=== PATIENT | female | born 1990 | race Caucasian/White ===

== ENCOUNTER 2017-12-21 21:56 | Emergency (ER) | payer BC ==
--- NOTE | 2017-12-21 23:40 | EDM.PDOC ---
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 It started this evening. She passed a couple of small clots. She does not have any lower abdominal pain. No cramping. She otherwise feels well. There is no clear provoking factor. 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 No fever or recent illness. No additional unusual vaginal discharge.No pain. No nausea or vomiting. No cough or shortness of breath. No urinary symptoms. - Related Data Allergies Allergy/AdvReac Type Severity Reaction Status Date / Time No Known Allergies Allergy Verified 12/21/17 22:08 Home Meds: Home Meds Qajooabu80/Iron Fum/FA/Om3/Dha [ Plus-Dha Combo Pack] 1 tab PO DAILY 07/29 [History] Progesterone,Micronized [Progesterone] 100 mg BID 12/21/17 [History] Past Medical History - Past Surgical History HEENT Surgical History: Reports: Oral Surgery Female Surgical History: Reports: Other (See Below) Other Female Surgeries/Procedures: miscarriage Social & Family History - Tobacco Use Smoking Status *Q: Never Smoker - Caffeine Use Caffeine Use: Reports: None ED ROS GENERAL - Review of Systems Review Of Systems: See Below Constitutional: Denies: Fever HEENT: Reports: No Symptoms Respiratory: Denies: Shortness of Breath Cardiovascular: Reports: No Symptoms Endocrine: Reports: No Symptoms GI/Abdominal: Reports: No Symptoms. Denies: Abdominal Pain : Denies: Dysuria Musculoskeletal: Reports: No Symptoms Skin: Reports: No Symptoms Neurological: Reports: No Symptoms Psychiatric: Reports: No Symptoms Hematologic/Lymphatic: Reports: No Symptoms Immunologic: Reports: No Symptoms ED EXAM - Physical Exam Exam: See Below Exam Limited By: No Limitations General Appearance: Alert, WD/WN, No Apparent Distress Eye Exam: Bilateral Eye: Normal Inspection, PERRL Ears: Normal External Exam Nose: Normal Inspection Throat/Mouth: Normal Inspection, Normal Oropharynx, Normal Voice Head: Atraumatic, Normocephalic Neck: Normal Inspection Respiratory/Chest: No Respiratory Distress, Lungs Clear, Normal Breath Sounds, No Accessory Muscle Use Cardiovascular: Normal Peripheral Pulses, Regular Rate, Rhythm, No Edema, No Murmur GI/Abdominal Exam: Soft, Non-Tender, No Distention (Female) Exam: Normal External Exam, Vaginal Bleeding (mild, 1 small clot in the vault, no active bleeding, cervix closed). No: Products of Conception Back Exam: Normal Inspection Extremities: Normal Inspection Neurological: Alert, Oriented, Normal Cognition, No Motor/Sensory Deficits Psychiatric: Normal Affect, Normal Mood Skin Exam: Warm, Dry, Intact, Normal Color, No Rash Course - Vital Signs Last Recorded V/S: Last Vital Signs Temp 36.8 C 12/21/17 22:04 Pulse 81 12/21/17 22:04 Resp 20 12/21/17 22:04 BP 133/85 12/21/17 22:04 Pulse Ox 100 12/21/17 22:04 - Orders/Labs/Meds Orders: Active Orders 24 hr Category Date Time Status Pelvic Exam, Set Up [RC] ASDIRECTED Care 12/21/17 22:33 Active Labs: Laboratory Tests 12/21/17 Range/Units 22:45 HCG, Quant 58330.0 mIU/mL - Re-Assessments/Exams Free Text/Narrative Re-Assessment/Exam: 12/21/17 23:48 hCG is appropriate at 67,000. I did a bedside transabdominal ultrasound and was able to see an intrauterine gestation with positive cardiac activity, estimate around 150 bpm, positive movement. Patient did not have further active bleeding here. Will discharge and have her call Dr. Clemente's office Saturday. Discussed ED return precautions. Departure - Departure Time of Disposition: 23:39 Disposition: Home, Self-Care 01 Clinical Impression: Vaginal bleeding affecting early - Discharge Information Instructions: Vaginal Bleeding During , First Trimester, [id number] Referrals: Yuval Clemente MD [Primary Care Provider] - Forms: ED Department Discharge Additional Instructions: 1. Follow up with Dr. Clemente this week 2. Return to the ED if you have very heavy bleeding or severe pain or any other concerning symptoms - My Orders Last 24 Hours: My Active Orders 12/21/17 22:33 Pelvic Exam, Set Up [RC] ASDIRECTED - Assessment/Plan Last 24 Hours: My Active Orders 12/21/17 22:33 Pelvic Exam, Set Up [RC] ASDIRECTED
== END 2017-12-21 23:45 | disposition home or self-care (01) ==
LOC: JD.ED 21:56
DX: O20.9 Hemorrhage in early pregnancy, unspecified (principal); Z3A.10 10 weeks gestation of pregnancy
CPT/HCPCS: 36415; 84702; 99283; 99284

== ENCOUNTER 2020-12-21 20:07 | Emergency (ER) | payer BC, OTHER ==
[2020-12-21] MEDS ORDERED: Magnesium Citrate Solution 296 ML Bottle PO ONE (20:31)
[2020-12-21] MEDS ORDERED: Ondansetron 4 MG Tab.DIS PO ONE (20:31)
--- NOTE | 2020-12-21 20:53 | EDM.PDOC ---
ED HPI GENERAL MEDICAL PROBLEM - General Chief Complaint: Abdominal Pain Stated Complaint: 12 WKS PG CONSTIPATED FEVER VOMITING Time Seen by Provider: 12/21/20 20:33 Source of Information: Reports: Patient, RN Notes Reviewed History Limitations: Reports: No Limitations - History of Present Illness INITIAL COMMENTS - FREE TEXT/NARRATIVE: Patient is a 30-year-old female who presents to the ER for the evaluation of her constipation. She is 12 weeks , she is a G3, with 1 spontaneous miscarriage. SWIMMING POOL ATTENDANT is Dr. Vernon. The patient notes that she has not had a good bowel movement, or normal bowel movement for herself in roughly 9 days. She has developed nausea and vomiting today, she has had 6 episodes of vomiting today. She also notes that she had a fever as high as 101.3 F at home. She is denying any dysuria, frequency or urgency, but thought maybe she had some brown or pink discharge along with some low pelvic pain, that seems to radiate into her back. She has had no chills, cough or shortness of breath. She has not been around anyone that is been known to be sick. Bilateral Lower Abdomen Pain Score (Numeric/FACES): 2 - Related Data Allergies Allergy/AdvReac Type Severity Reaction Status Date / Time No Known Allergies Allergy Verified 12/21/20 20:27 Home Meds: Home Meds Fish Oil/[place]-3 Fatty Acids [Fish Oil] 1 each PO DAILY 06/04/18 [History] No122/Iron/Folic Acid [ Multi Tablet] 1 each PO DAILY 06/04/18 [History] Docusate Sodium [Colace] 100 mg PO BID PRN cap 07/02/18 [Rx] polyethylene glycoL 3350 [MiraLAX] 17 gm PO DAILY 12/21/20 [History] Past Medical History SWIMMING POOL ATTENDANT History: Reports: , Spontaneous Immunologic History: Reports: Other (See Below) Dermatologic History: Reports: Other (See Below) - Infectious Disease History Infectious Disease History: Reports: None - Past Surgical History HEENT Surgical History: Reports: Oral Surgery Female Surgical History: Reports: Other (See Below) Other Female Surgeries/Procedures: miscarriage Social & Family History - Family History Family Medical History: No Pertinent Family History Cardiac: Reports: Other (See Below) Respiratory: Reports: Asthma : Reports: UTI, Recurrent Neurological: Reports: Other (See Below) Psychiatric: Reports: Depression Endocrine/Metabolic: Reports: Diabetes, Type I - Tobacco Use Tobacco Use Status *Q: Never Tobacco User Second Hand Smoke Exposure: No - Caffeine Use Caffeine Use: Reports: Coffee Caffeine Use Comment: occasionally - Recreational Drug Use Recreational Drug Use: No ED ROS GENERAL - Review of Systems Review Of Systems: Comprehensive ROS is negative, except as noted in HPI. ED EXAM, GI/ABD - Physical Exam Exam: See Below Exam Limited By: No Limitations General Appearance: Alert, WD/WN, No Apparent Distress, Anxious Respiratory/Chest: No Respiratory Distress, Lungs Clear, Normal Breath Sounds, No Accessory Muscle Use, Chest Non-Tender Cardiovascular: Normal Peripheral Pulses, Regular Rate, Rhythm, No Edema GI/Abdominal Exam: Normal Bowel Sounds, Soft, Non-Tender, No Distention, No Mass (Female) Exam: Deferred, Other (Dr. Mayberry did provide bedside US, the fetus was active and he counted heart rate at around 150bpm.) Extremities: Normal Inspection, Normal Capillary Refill Neurological: Alert, Oriented, Normal Cognition, No Motor/Sensory Deficits Psychiatric: Normal Affect, Normal Mood Skin Exam: Warm, Dry, Intact, Normal Color, No Rash Course - Vital Signs Last Recorded V/S: Last Vital Signs Temp 99.6 F 12/21/20 20:24 Pulse 103 H 12/21/20 20:24 Resp 18 12/21/20 20:24 BP 120/78 12/21/20 20:24 Pulse Ox 100 12/21/20 20:24 - Orders/Labs/Meds Orders: Active Orders 24 hr Category Date Time Status Enema [RC] ASDIRECTED Care 12/21/20 20:32 Ordered Labs: Laboratory Tests 12/21/20 12/21/20 Range/Units 20:51 20:55 WBC 21.69 H (3.98-10.04) K/mm3 RBC 4.10 (3.98-5.22) M/mm3 Hgb 12.8 (11.2-15.7) gm/dl Hct 37.8 (34.1-44.9) % MCV 92.2 (79.4-94.8) fl MCH 31.2 (25.6-32.2) pg MCHC 33.9 (32.2-35.5) g/dl RDW Std Deviation 41.6 (36.4-46.3) fL Plt Count 217 (182-369) K/mm3 MPV 9.9 (9.4-12.3) fl Neutrophils % (Manual) 87 H (40-60) % Band Neutrophils % 1 (0-10) % Lymphocytes % (Manual) 4 L (20-40) % Atypical Lymphs % 0 % Monocytes % (Manual) 7 (2-10) % Eosinophils % (Manual) 0 L (0.7-5.8) % Basophils % (Manual) 1 (0.1-1.2) Platelet Estimate Adequate RBC Morph Comment Normal Urine Color Yellow (Yellow) Urine Appearance Clear (Clear) Urine pH 6.0 (5.0-8.0) Ur Specific [place] > or = 1.030 (1.005-1.030) Urine Protein Negative (Negative) Urine Glucose (UA) Negative (Negative) Urine Ketones 2+ H (Negative) Urine Occult Blood Negative (Negative) Urine Nitrite Negative (Negative) Urine Bilirubin Negative (Negative) Urine Urobilinogen 1.0 (0.2-1.0) Ur Leukocyte Esterase Negative (Negative) Urine RBC 0-5 (0-5) /hpf Urine WBC 0-5 (0-5) /hpf Ur Squamous Epith Cells 0-5 (0-5) /hpf Urine Bacteria Few (FEW) /hpf Urine Mucus Moderate H (FEW) /hpf Meds: Medications Discontinued Medications Generic Name Dose Route Start Last Admin Trade Name Freq PRN Reason Stop Dose Admin Magnesium Citrate 296 ml 12/21/20 20:31 12/21/20 20:48 Magnesium Citrate Solution 296 Ml Bottle PO 12/21/20 20:32 296 ml ONETIME ONE Administration Ondansetron HCl 4 mg 12/21/20 20:31 12/21/20 20:48 Ondansetron 4 Mg Tab.Dis PO 12/21/20 20:32 4 mg ONETIME ONE Administration - Re-Assessments/Exams Free Text/Narrative Re-Assessment/Exam: 12/21/20 20:52 Patient presents to the ER for her constipation, we will give her some mag citrate, provide her with an enema, take a urine sample, and a basic CBC see if there is any sort of elevation of her white count due to the fever. Patient does not appear overly sick in the ER, and Dr. Mayberry did provide bedside ultrasound that demonstrated movement with a heart rate of roughly 150 bpm. This did reassure the mother, that the fetus is in fact okay. 12/21/20 21:44 Urinalysis has resulted, and demonstrates no focal abnormalities. The patient's white count is elevated at 21,000 with 85% neutrophils and 1 band reported on the manual differential. Again when the patient had ultrasound she elicited no pain response when pushing on the abdomen. I will talk the results over with the patient, and have her follow-up with her SWIMMING POOL ATTENDANT, tomorrow morning for at least a recheck, and to make sure that things are getting better, and have her return to the ER if things seem to be worsening. Departure - Departure Time of Disposition: 21:45 Disposition: Home, Self-Care 01 Condition: Good Clinical Impression: Constipation Qualifiers: Constipation type: other constipation type Qualified Code(s): K59.09 - Other constipation Fever Qualifiers: Fever type: unspecified Qualified Code(s): R50.9 - Fever, unspecified - Discharge Information *PRESCRIPTION DRUG MONITORING PROGRAM REVIEWED*: No *COPY OF PRESCRIPTION DRUG MONITORING REPORT IN PATIENT MEGAN: No Instructions: Constipation, Adult, [id number] Referrals: Fozia Vernon MD [Primary Care Provider] - Forms: ED Department Discharge Additional Instructions: You have been evaluated in the ED for nausea/vomiting/constipation. You have been given a bottle of magnesium citrate, please drink one half bottle, if you do not have a rather large bowel movement in the next few hours, continue with the last half bottle. Please note that you will have some mild abdomen cramping while using this medication, and you may have some looser stools towards the end of use of this medication. Your white blood cell count was slightly elevated at today's visit, but sometimes this can happen in . If symptoms seem to progress, or your abdomen pain seems to locate within the right lower abdomen, or you develop any worsening symptoms, please do not hesitate to return to the ER otherwise I would highly recommend you follow-up with your SWIMMING POOL ATTENDANT, tomorrow morning for close follow-up appointment either tomorrow or early the next morning on Saturday before the weekend. Just tell them that you were seen in the ER and need a follow-up appointment. Over the next 24-48 hours please try to limit diet to clear liquids and advance as tolerate to a bland diet to alleviate symptoms of nausea/vomiting. Recommend you use a stool softener like MiraLAX, Colace or Dulcolax in your normal regimen, to keep your stool soft, and to hopefully prevent further constipation. Please return to the ED if your symptoms should change or worsen. Sepsis Event Note (ED) - Evaluation Sepsis Screening Result: No Definite Risk - Focused Exam Vital Signs: Vital Signs Temp Pulse Resp BP Pulse Ox 12/21/20 20:24 99.6 F 103 H 18 120/78 100 - My Orders Last 24 Hours: My Active Orders 12/21/20 20:32 Enema [RC] ASDIRECTED - Assessment/Plan Last 24 Hours: My Active Orders 12/21/20 20:32 Enema [RC] ASDIRECTED
== END 2020-12-21 22:00 | disposition home or self-care (01) ==
LOC: JD.ED 20:07
DX: O99.611 Diseases of the digestive system complicating pregnancy, first trimester (principal); K59.09 Other constipation; O99.891 Other specified diseases and conditions complicating pregnancy; R50.9 Fever, unspecified; Z3A.12 12 weeks gestation of pregnancy
CPT/HCPCS: 36415; 81001; 85007; 85027; 99284; A9270

== ENCOUNTER 2020-12-23 14:35 | Emergency (ER) | payer OTHER ==
[2020-12-23] MEDS ORDERED: Sodium Chloride 0.9% 1,000 ML IV STA (16:37)
--- NOTE | 2020-12-23 16:39 | US ---
Right lower quadrant abdominal ultrasound: Multiple real-time images of the right lower abdomen were obtained. No cyst or solid abnormality is seen. Appendix is not visualized with certainty. Impression: 1. No ultrasound abnormality is appreciated within the right lower quadrant. 2. Nonvisualized appendix. Diagnostic code #1
--- NOTE | 2020-12-23 16:39 | US ---
Obstetrical ultrasound: Multiple real-time images were obtained transabdominally. Comparison: No previous study is available. Dates: Current ultrasound: [place] 06/29/21, gestational age 13 weeks 0 days Single intrauterine fetus is seen. Amniotic fluid volume is normal. Minimal subchorionic hemorrhage is noted. Maternal ovaries are not visualized. Measurements: [place]-rump length: 6.72 cm - 13 weeks 0 days Heart rate: 176 bpm Impression: 1. Single intrauterine gestation. Dates as noted above. 2. Minimal subchorionic hemorrhage is seen. 3. No other complicating abnormality is appreciated. Diagnostic code #2
[2020-12-23] MEDS ORDERED: HYDROmorphone 0.5 MG/0.5 ML Syringe IVPUSH ONE ×3 (17:01→18:52)
[2020-12-23] MEDS ORDERED: Ondansetron 4 MG/2 ML SDV IVPUSH ONE (17:01)
--- NOTE | 2020-12-23 17:23 | EDM.PDOC ---
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 She reports that last week, she had an occurrence of vaginal bleeding. She was seen by her OB/GY N, Dr. Vernon. Ultrasound was completed that time and showed that she did have a subchorionic hemorrhage. Bleeding had stopped until about 2 days ago she developed some light pink vaginal spotting. Bleeding has been occurring since that time and has been getting progressively heavier, however, thusfar she has only had to wear a panty liner. She also reports that for the last 2 days she has had fever with a T-max of 103, intermittent left lower quadrant abdominal pain as well as pelvic pain. She was seen in this emergency department 2 days ago for the symptoms as well as for vomiting. Blood work was completed at that time and showed a WBC of 21.99. Patient states that she had not had a bowel movement for 9 days prior to that. She received an enema and had proximately 3 bowel movements since that time. She has had no further vomiting. She was seen by her CUTTING AND SPLICING SUPERVISOR yesterday. She did a pelvic exam and stated that her cervix was closed. Blood work was not repeated. After leaving her CUTTING AND SPLICING SUPERVISOR's office, she spiked a fever again. She is concerned that she could possibly have appendicitis as her brother had this with only left-sided abdominal pain. She reports taking Tylenol this morning but has not had a documented fever today. Temperature during triage was 98.8. Approximately 2 weeks ago, she was tested for gonorrhea and chlamydia, and both of these were found to be negative. She was Covid tested in the clinic yesterday and this was negative. Treatments BARN AND PROPERTY MANAGER: Reports: Other (see below) Other Treatments BARN AND PROPERTY MANAGER: tylenol Lower Abdomen Pain Score (Numeric/FACES): 4 - Related Data Allergies Allergy/AdvReac Type Severity Reaction Status Date / Time No Known Allergies Allergy Verified 12/21/20 20:27 Home Meds: Home Meds Fish Oil/[place]-3 Fatty Acids [Fish Oil] 1 each PO DAILY 06/04/18 [History] No122/Iron/Folic Acid [ Multi Tablet] 1 each PO DAILY 06/04/18 [History] Docusate Sodium [Colace] 100 mg PO BID PRN cap 07/02/18 [Rx] polyethylene glycoL 3350 [MiraLAX] 17 gm PO DAILY 12/21/20 [History] Past Medical History CUTTING AND SPLICING SUPERVISOR History: Reports: , Spontaneous Immunologic History: Reports: Other (See Below) Dermatologic History: Reports: Other (See Below) - Infectious Disease History Infectious Disease History: Reports: None - Past Surgical History HEENT Surgical History: Reports: Oral Surgery Female Surgical History: Reports: Other (See Below) Other Female Surgeries/Procedures: miscarriage Social & Family History - Family History Family Medical History: No Pertinent Family History Cardiac: Reports: Other (See Below) Respiratory: Reports: Asthma : Reports: UTI, Recurrent Neurological: Reports: Other (See Below) Psychiatric: Reports: Depression Endocrine/Metabolic: Reports: Diabetes, Type I - Tobacco Use Tobacco Use Status *Q: Never Tobacco User - Caffeine Use Caffeine Use: Reports: Coffee Caffeine Use Comment: occasionally - Recreational Drug Use Recreational Drug Use: No ED ROS GENERAL - Review of Systems Review Of Systems: See Below Constitutional: Reports: Fever, Chills HEENT: Reports: No Symptoms Respiratory: Reports: No Symptoms. Denies: Shortness of Breath, Cough Cardiovascular: Reports: No Symptoms. Denies: Chest Pain Endocrine: Reports: No Symptoms GI/Abdominal: Reports: Abdominal Pain, Nausea. Denies: Vomiting : Reports: Other (vaginal bleeding) Musculoskeletal: Reports: No Symptoms Skin: Reports: No Symptoms Neurological: Reports: No Symptoms Psychiatric: Reports: No Symptoms Hematologic/Lymphatic: Reports: No Symptoms Immunologic: Reports: No Symptoms ED EXAM, GI/ABD - Physical Exam Exam: See Below Exam Limited By: No Limitations General Appearance: Alert, WD/WN, No Apparent Distress Respiratory/Chest: No Respiratory Distress, Lungs Clear, Normal Breath Sounds, No Accessory Muscle Use, Chest Non-Tender Cardiovascular: Normal Peripheral Pulses, Regular Rate, Rhythm, No Edema, No Gallop, No JVD, No Murmur, No Rub GI/Abdominal Exam: Normal Bowel Sounds, Soft, No Organomegaly, No Distention, No Abnormal Bruit, No Mass, Pelvis Stable, Tender (LLQ and suprapubic) Neurological: Alert, Oriented, CN II-XII Intact, Normal Cognition, Normal Gait, Normal Reflexes, No Motor/Sensory Deficits Psychiatric: Normal Affect, Normal Mood Skin Exam: Warm, Dry, Intact, Normal Color, No Rash Course - Vital Signs Last Recorded V/S: Last Vital Signs Temp 98.8 F 12/23/20 14:52 Pulse 92 12/23/20 18:21 Resp 16 12/23/20 18:21 BP 110/62 12/23/20 18:21 Pulse Ox 100 12/23/20 18:21 - Orders/Labs/Meds Labs: Laboratory Tests 12/23/20 12/23/20 12/23/20 Range/Units 15:34 15:40 15:40 WBC 10.99 H (3.98-10.04) K/mm3 RBC 3.64 L (3.98-5.22) M/mm3 Hgb 11.4 (11.2-15.7) gm/dl Hct 33.4 L (34.1-44.9) % MCV 91.8 (79.4-94.8) fl MCH 31.3 (25.6-32.2) pg MCHC 34.1 (32.2-35.5) g/dl RDW Std Deviation 41.4 (36.4-46.3) fL Plt Count 132 L D (182-369) K/mm3 MPV 10.1 (9.4-12.3) fl Neut % (Auto) 76.6 H (34.0-71.1) % Lymph % (Auto) 13.3 L (19.3-51.7) % Lane % (Auto) 9.0 (4.7-12.5) % Eos % (Auto) 0.5 L (0.7-5.8) Baso % (Auto) 0.2 (0.1-1.2) % Neut # (Auto) 8.43 H (1.56-6.13) K/mm3 Lymph # (Auto) 1.46 (1.18-3.74) K/mm3 Lane # (Auto) 0.99 H (0.24-0.36) K/mm3 Eos # (Auto) 0.05 (0.04-0.36) K/mm3 Baso # (Auto) 0.02 (0.01-0.08) K/mm3 Manual Slide Review Abnormal smear Sodium 138 (136-145) mEq/L Potassium 3.3 L (3.5-5.1) mEq/L Chloride 104 (98-107) mEq/L Carbon Dioxide 25 (21-32) mEq/L Anion Gap 12.3 (5-15) BUN 6 L (7-18) mg/dL Creatinine 0.6 (0.55-1.02) mg/dL Est Cr Clr Drug Dosing 137.63 mL/min Estimated GFR (MDRD) > 60 (>60) mL/min BUN/Creatinine Ratio 10.0 L (14-18) Glucose 91 (70-99) mg/dL Calcium 8.4 L (8.5-10.1) mg/dL Total Bilirubin 0.5 (0.2-1.0) mg/dL AST 18 (15-37) U/L ALT 21 (14-59) U/L Alkaline Phosphatase 66 (46-116) U/L C-Reactive Protein 31.4 H* (<1.0) mg/dL Total Protein 6.7 (6.4-8.2) g/dl Albumin 2.8 L (3.4-5.0) g/dl Globulin 3.9 gm/dL Albumin/Globulin Ratio 0.7 L (1-2) Lipase 61 L (73-393) U/L Urine Color Yellow (Yellow) Urine Appearance Clear (Clear) Urine pH 6.5 (5.0-8.0) Ur Specific [place] 1.020 (1.005-1.030) Urine Protein Trace H (Negative) Urine Glucose (UA) Negative (Negative) Urine Ketones Negative (Negative) Urine Occult Blood 2+ H (Negative) Urine Nitrite Negative (Negative) Urine Bilirubin Negative (Negative) Urine Urobilinogen 1.0 (0.2-1.0) Ur Leukocyte Esterase Negative (Negative) Urine RBC 5-10 H (0-5) /hpf Urine WBC 0-5 (0-5) /hpf Ur Squamous Epith Cells 0-5 (0-5) /hpf Urine Bacteria Few (FEW) /hpf Urine Mucus Few (FEW) /hpf Blood Type 12/23/20 Range/Units 15:40 WBC (3.98-10.04) K/mm3 RBC (3.98-5.22) M/mm3 Hgb (11.2-15.7) gm/dl Hct (34.1-44.9) % MCV (79.4-94.8) fl MCH (25.6-32.2) pg MCHC (32.2-35.5) g/dl RDW Std Deviation (36.4-46.3) fL Plt Count (182-369) K/mm3 MPV (9.4-12.3) fl Neut % (Auto) (34.0-71.1) % Lymph % (Auto) (19.3-51.7) % Lane % (Auto) (4.7-12.5) % Eos % (Auto) (0.7-5.8) Baso % (Auto) (0.1-1.2) % Neut # (Auto) (1.56-6.13) K/mm3 Lymph # (Auto) (1.18-3.74) K/mm3 Lane # (Auto) (0.24-0.36) K/mm3 Eos # (Auto) (0.04-0.36) K/mm3 Baso # (Auto) (0.01-0.08) K/mm3 Manual Slide Review Sodium (136-145) mEq/L Potassium (3.5-5.1) mEq/L Chloride (98-107) mEq/L Carbon Dioxide (21-32) mEq/L Anion Gap (5-15) BUN (7-18) mg/dL Creatinine (0.55-1.02) mg/dL Est Cr Clr Drug Dosing mL/min Estimated GFR (MDRD) (>60) mL/min BUN/Creatinine Ratio (14-18) Glucose (70-99) mg/dL Calcium (8.5-10.1) mg/dL Total Bilirubin (0.2-1.0) mg/dL AST (15-37) U/L ALT (14-59) U/L Alkaline Phosphatase (46-116) U/L C-Reactive Protein (<1.0) mg/dL Total Protein (6.4-8.2) g/dl Albumin (3.4-5.0) g/dl Globulin gm/dL Albumin/Globulin Ratio (1-2) Lipase (73-393) U/L Urine Color (Yellow) Urine Appearance (Clear) Urine pH (5.0-8.0) Ur Specific [place] (1.005-1.030) Urine Protein (Negative) Urine Glucose (UA) (Negative) Urine Ketones (Negative) Urine Occult Blood (Negative) Urine Nitrite (Negative) Urine Bilirubin (Negative) Urine Urobilinogen (0.2-1.0) Ur Leukocyte Esterase (Negative) Urine RBC (0-5) /hpf Urine WBC (0-5) /hpf Ur Squamous Epith Cells (0-5) /hpf Urine Bacteria (FEW) /hpf Urine Mucus (FEW) /hpf Blood Type A POSITIVE Meds: Medications Discontinued Medications Generic Name Dose Route Start Last Admin Trade Name Freq PRN Reason Stop Dose Admin Diatrizoate Meglum/Diatrizoate Sod 120 ml 12/23/20 18:30 12/23/20 18:36 Diatrizoate Meglumine/Diatrizoate Sodium 37% 120 Ml Bottle PO 12/23/20 18:31 80 ml ONETIME ONE Administration Hydromorphone HCl 0.5 mg 12/23/20 17:01 12/23/20 17:07 Hydromorphone 0.5 Mg/0.5 Ml Syringe IVPUSH 12/23/20 17:02 0.5 mg ONETIME ONE Administration Hydromorphone HCl 0.5 mg 12/23/20 18:08 12/23/20 18:19 Hydromorphone 0.5 Mg/0.5 Ml Syringe IVPUSH 12/23/20 18:09 0.5 mg ONETIME ONE Administration Hydromorphone HCl 0.5 mg 12/23/20 18:52 12/23/20 19:06 Hydromorphone 0.5 Mg/0.5 Ml Syringe IVPUSH 12/23/20 18:53 0.5 mg ONETIME ONE Administration Hydromorphone HCl Confirm 12/23/20 18:18 12/23/20 21:33 Hydromorphone 0.5 Mg/0.5 Ml Syringe Administered 12/23/20 18:19 Not Given Dose 0.5 mg .ROUTE .STK-MED ONE Hydromorphone HCl Confirm 12/23/20 19:03 12/23/20 21:33 Hydromorphone 0.5 Mg/0.5 Ml Syringe Administered 12/23/20 19:04 Not Given Dose 0.5 mg .ROUTE .STK-MED ONE Sodium Chloride 1,000 mls @ 999 mls/hr 12/23/20 16:37 12/23/20 16:50 Normal Saline IV 12/23/20 17:37 150 mls/hr NOW STA Administration Iopamidol 100 ml 12/23/20 18:30 12/23/20 18:36 Iopamidol 612 Mg/Ml 100 Ml Bottle IVPUSH 12/23/20 18:31 100 ml ONETIME ONE Administration Misoprostol 600 mcg 12/23/20 21:16 12/23/20 21:33 Misoprostol 200 Mcg Tab PO 12/23/20 21:17 600 mcg ONETIME ONE Administration Ondansetron HCl 4 mg 12/23/20 17:01 12/23/20 17:07 Ondansetron 4 Mg/2 Ml Sdv IVPUSH 12/23/20 17:02 4 mg ONETIME ONE Administration Sodium Chloride 10 ml 12/23/20 18:30 12/23/20 18:37 Sodium Chloride 0.9% 10 Ml Syringe FLUSH 10 ml ASDIRECTED CRYSTAL Administration - Re-Assessments/Exams Free Text/Narrative Re-Assessment/Exam: Patient is a 30-year-old female, A1 12 weeks gestation, returning to the emergency department for ongoing light vaginal bleeding, lower abdominal and low left lower quadrant abdominal pain, as well as fevers. She was seen in this emergency department 2 days ago and found to have a white count of 21.99. She saw her CUTTING AND SPLICING SUPERVISOR yesterday who told her that if she continues to have fever she should return to the ER as this could be a sign of appendicitis. On exam, she does have some mild left lower quadrant as well as more significant mid to lower abdominal tenderness. She was found to be afebrile on triage. I have ordered blood work, urinalysis, as well as an OB and right lower quadrant ultrasound. 12/23/20 17:25 Hematology was significant for a WBC minimally elevated at 10.99, potassium 3.3, CRP 31.4. Urinalysis is negative for infection. Right lower quadrant abdominal ultrasound shows no abnormalities and a nonvisualized appendix. OB ultrasound impression as follows: 1. Single intrauterine gestation. Dates as noted above 2. Minimal subchorionic hemorrhage is seen. 3. No other complicating abnormalities is appreciated. Case was discussed with the general surgeon on-call, Dr. Vargas. Given the patient's symptoms of abdominal pain and fever and her significantly elevated CRP, she recommends that we proceed to CT scan to ensure there is no acute intra-abdominal process occurring as the risk of an untreated intraabdominal infection exceeds the risk of radiation to an unborn fetus. Discussed the risks of radiation associated with the CT scan versus the risk of an untreated intraabdominal infection with the patient and she has agreed to proceed with CT scan. She also states that her low abdominal pain has worsened since she got here. I ordered Dilaudid 0.5 mg IV, Zofran 4 mg IV, and NS at 150 mill per hour. 12/23/20 18:25 Concern was raised by radiologist with regards to CT scan given that the patient is . Radiologist Berta mckinnon, did speak with Dr. Vargas who reiterated that CT scan is the only option as we do not have MRI services available here. I did speak with the patient and her mother in law again and offer possibility of trying to transfer to [place] for MRI if she is concerned with the radiation risk. I also spoke with her on the phone and discussed the risks of radiation. They have decided to proceed with the CT scan. Patient is having increased pain. I did order an additional dose of Dilaudid 0.5 mg IV. 12/23/20 18:53 Patient reports that her vaginal bleeding has increased significantly. She is also passing some small clots. For an additional dose of Dilaudid 0.[address] scan results are pending. Patient will be moved to the gynecologic room for a pelvic exam. 12/23/20 19:59 CT scan of the abdomen pelvis impression as follows: 1. Gravid uterus with an open cervical os with fluid and hyperdense material passing through the cervical os and into the vaginal canal. Findings are highly concerning for cervical incompetence/ failure. Correlation with ultrasound is recommended. 2. No other acute abdominopelvic pathology is otherwise appreciated. 3. Incidental findings as detailed above. Pelvic exam was completed and does show a gestational sac within the vaginal canal. Case was discussed with CUTTING AND SPLICING SUPERVISOR on-call, Dr. Billy. He verbalized that we should allow the patient to pass the products naturally. Once products pass if she continues to have bleeding, she can be given Methergine 0.2 mg IM or Cytotec 400 to 600 mg p.o. 12/23/20 21:30 Patient has had no further cramping and has not passed the products of conception. Spoke with Dr. Billy. He recommend that we give Cytotec 600 mg p.o. to stimulate uterine contractions. Discussed this plan with the patient she was in agreement. She will notify me if her pain should worsen at that time we will give her additional pain medications as needed. 12/23/20 23:00 Patient has had no additional cramping. I did have her put on a brief and get up and walk around the room. Shortly thereafter she did pass the fetus with a still intact gestational sac and complete placenta. Patient did request to see the remains. remains will be sent to laboratory. We will monitor for additional bleeding, however at this time she is having very little vaginal bleeding. 12/23/20 23:17 Patient is having no vaginal bleeding or pain at this time. We will discharge her home with a prescription for Geronimo should the cramping return. Recommend routine ibuprofen for the next couple days. Discussed return precautions including increased vaginal bleeding. Recommend follow-up with her CUTTING AND SPLICING SUPERVISOR on Saturday. Departure - Departure Time of Disposition: 23:18 Disposition: Home, Self-Care 01 Condition: Good Clinical Impression: Complete - Discharge Information *PRESCRIPTION DRUG MONITORING PROGRAM REVIEWED*: No *COPY OF PRESCRIPTION DRUG MONITORING REPORT IN PATIENT MEGAN: No Instructions: Miscarriage, [id number] Referrals: Fozia Vernon MD [Primary Care Provider] - Forms: ED Department Discharge Additional Instructions: You were seen in the emergency department today for pelvic and left lower abdominal pain, fevers, and vaginal bleeding. Work-up included blood work, urinalysis, ultrasound, and a CT scan of your abdomen pelvis. Unfortunately, the results your work-up indicated that you were having a miscarriage. You did complete miscarriage in the emergency department. As we discussed, you may continue to have some pelvic cramping as well as bleeding. Recommend ibuprofen routinely for the next few days. For pain not relieved by this, you have been provided a prescription for hydrocodone with Tylenol. Use this as prescribed. If your bleeding should increase to where you are saturating a pad an hour from 2 or more hours, recommend return to the emergency department for reevaluation. Please contact your CUTTING AND SPLICING SUPERVISOR on Saturday morning to update her on this evening's occurrences. Our deepest condolences to your and your family for your loss. Sepsis Event Note (ED) - Evaluation Sepsis Screening Result: No Definite Risk
[2020-12-23] MEDS ORDERED: HYDROmorphone 0.5 MG/0.5 ML Syringe ONE ×2 (18:18→19:03)
[2020-12-23] MEDS ORDERED: Diatrizoate Meglumine/Diatrizoate Sodium 37% 120 ML Bottle PO ONE (18:30)
[2020-12-23] MEDS ORDERED: Sodium Chloride 0.9% 10 ML Syringe FLUSH SCH (18:30)
[2020-12-23] MEDS ORDERED: Iopamidol 612 MG/ML 100 ML Bottle IVPUSH ONE (18:30)
[2020-12-23] MEDS ORDERED: Misoprostol 200 MCG Tab PO ONE (21:16)
--- NOTE | 2020-12-24 07:58 | CT ---
CT abdomen and pelvis Technique: Multiple axial sections were obtained from above the dome of the diaphragm inferiorly through the pubic symphysis. Intravenous and oral contrast was utilized. Reconstructed coronal and sagittal images were also obtained. Comparison: Prior right lower quadrant ultrasound performed earlier on the same day as well as prior obstetrical ultrasound also performed on the same day. Findings: Visualized lung bases are clear. Liver shows no focal parenchymal abnormality. Spleen appears normal. Adrenal glands show no nodule. Pancreas appears within normal limits. Gallbladder contains no calcified gallstones. Kidneys show symmetric contrast enhancement without hydronephrosis or mass. Small nonobstructing calculus is noted within each kidney measuring less than 3 mm. Abdominal aorta shows no aneurysm. No retroperitoneal adenopathy is seen. No mesenteric abnormalities are seen. Intrauterine is seen. Appendix is visualized and is normal in size. No inflammatory change is appreciated. On the reconstructed sagittal images there appears to be protrusion of the amniotic sac into the cervix suggesting incompetent cervix Impression: 1. Intrauterine . 2. Appendix is seen and is normal. 3. Small nonobstructing calculus within each kidney. 4. Amniotic fluid within the cervical canal suggesting incompetent cervix. This finding is not definitely appreciated on earlier ultrasound study. Diagnostic code #5 I agree with preliminary report from [facility] finalized on 12/23/20, 8:15 PM CDT, code 1
== END 2020-12-23 23:47 | disposition home or self-care (01) ==
LOC: JD.ED 14:35
DX: O03.9 Complete or unspecified spontaneous abortion without complication (principal)
CPT/HCPCS: 36415; 74177; 76705; 76801; 80053; 81001; 83690; 85025; 86140; 86900; 86901; 96374; 96375; 96376; 99284; A9270; J1170; J2405; J7030; Q9963; Q9967

== ENCOUNTER 2021-10-07 17:22 | Inpatient (IN) | payer OTHER ==
[2021-10-07] MEDS ORDERED: Nalbuphine 10 MG/1 ML Vial IVPUSH PRN (22:54)
[2021-10-07] MEDS ORDERED: Lactated Ringers 1,000 ML IV SCH (22:54)
[2021-10-07] MEDS ORDERED: Sodium Chloride 0.9% 10 ML Syringe FLUSH PRN (22:54)
[2021-10-07] MEDS ORDERED: Oxytocin/Lactated Ringers 10 UNIT/1,000 ML BAG IV SCH (22:54)
[2021-10-07] MEDS ORDERED: Acetaminophen 325 MG Tab PO PRN (22:54)
[2021-10-08] MEDS ORDERED: Lidocaine 1% 50 ML MDV ONE (00:33)
[2021-10-08] MEDS: Ibuprofen 600 MG Tab PO PRN ×4 (01:00→21:15)
[2021-10-08] MEDS ORDERED: Acetaminophen 325 MG Tab PO PRN (02:21)
[2021-10-08] MEDS ORDERED: Witch Hazel Medicated Pads 40/Jar TOP PRN (02:21)
[2021-10-08] MEDS ORDERED: Hydrocortisone Acetate 25 MG Supp RECTAL PRN (02:21)
[2021-10-08] MEDS ORDERED: Benzocaine/Menthol 20%-0.5% Spray 78 GM Cannister TOP PRN (02:21)
[2021-10-08] MEDS ORDERED: Magnesium Hydroxide 400 MG/5 ML Susp 30 ML Cup PO PRN (02:21)
[2021-10-08] MEDS ORDERED: Oxytocin/Lactated Ringers 10 UNIT/1,000 ML BAG IV SCH (02:30)
[2021-10-08] MEDS ORDERED: Measles, Mumps & Rubella Vaccine 0.5 ML SDV SUBCUT ONE (02:31)
[2021-10-08] MEDS ORDERED: Sodium Chloride 0.9% 10 ML Syringe FLUSH SCH (09:00)
[2021-10-08] MEDS: Prenatal Multivitamin with Calcium/Folic Acid/Iron Tab PO SCH (15:47)
[2021-10-09] MEDS: Prenatal Multivitamin with Calcium/Folic Acid/Iron Tab PO SCH (09:16)
[2021-10-09] MEDS: Ibuprofen 600 MG Tab PO PRN ×2 (09:17→15:00)
[2021-10-09] MEDS: Docusate Sodium 100 MG Cap PO PRN (15:01)
[2021-10-10] MEDS: Docusate Sodium 100 MG Cap PO PRN (00:15)
[2021-10-10] MEDS: Ibuprofen 600 MG Tab PO PRN ×2 (00:16→09:38)
[2021-10-10] MEDS: Prenatal Multivitamin with Calcium/Folic Acid/Iron Tab PO SCH (09:38)
[2021-10-10] MEDS ORDERED: Measles, Mumps & Rubella Vaccine 0.5 ML SDV SUBCUT ONE (13:15)
== END 2021-10-10 13:50 | disposition home or self-care (01) | DRG 807 ==
LOC: JD.OBCHECK 17:22 → JD.OB 17:23 → OBSVTOIN 22:37 → JD.OBCHECK 22:37 → JD.OB 10-08 02:58
PROVIDERS: ADMIT Obstetrics & Gynecology; ATTEND Obstetrics & Gynecology
PROC: 10E0XZZ Delivery of Products of Conception, External Approach (ICD-10-PCS; principal; 2021-10-08)
PROC: 0KQM0ZZ Repair Perineum Muscle, Open Approach (ICD-10-PCS; 2021-10-08)
DX: O60.14X0 Preterm labor third trimester with preterm delivery third trimester, not applicable or unspecified (principal); Z37.0 Single live birth; Z3A.36 36 weeks gestation of pregnancy; Z86.16 Personal history of COVID-19; O70.1 Second degree perineal laceration during delivery
CPT/HCPCS: 36415; 59025; 59409; 84112; 85025; 86592; 90471; 90707; A9270-GY; J2001; J2590; J7120

== ENCOUNTER 2025-04-23 09:29 | Inpatient (IN) | payer BC ==
[2025-04-23] MEDS ORDERED: Sodium Chloride 0.9% 10 ML Syringe FLUSH PRN (10:09)
[2025-04-23] MEDS ORDERED: Nalbuphine 10 MG/1 ML Vial IVPUSH PRN (10:09)
[2025-04-23] MEDS ORDERED: Ondansetron 4 MG/2 ML SDV IVPUSH PRN (10:09)
[2025-04-23] MEDS ORDERED: Oxytocin/0.9 % Sodium Chloride 30 UNIT/500 ML BAG IV SCH (10:15)
[2025-04-23] MEDS: Lactated Ringers 1,000 ML IV SCH (10:18)
[2025-04-23 10:49] LABS: BASOPHILS ABSOLUTE AUTO 0.0 K/mm3 (0.0-0.2); BASOPHILS PERCENT AUTO 0.3 % (0.0-1.0); EOSINOPHILS ABSOLUTE AUTO 0.0 K/mm3 (0.0-0.4); EOSINOPHILS PERCENT AUTO 0.4 % (0.0-6.0); IMMATURE GRAN ABSOLUTE AUTO 0.06 K/mm3 (0.00-0.05); IMMATURE GRAN PERCENT AUTO 0.6 % (0.0-0.4); LYMPHOCYTES ABSOLUTE AUTO 2.1 K/mm3 (1.0-4.8); LYMPHOCYTES PERCENT AUTO 22.6 % (24.0-44.0); MEAN PLATELET VOLUME 10.4 fl (9.4-12.3); MONOCYTES ABSOLUTE AUTO 0.7 K/mm3 (0.0-0.8); MONOCYTES PERCENT AUTO 7.0 % (0.0-8.0); NEUTROPHILS ABSOLUTE AUTO 6.5 K/mm3 (1.8-7.7); NEUTROPHILS PERCENT AUTO 69.1 % (41.0-71.0); NRBC ABSOLUTE 0.00 (0.00-0.02); NRBC PERCENT 0.0 % (0.0-0.2); PLATELET COUNT,PLT 254 K/mm3 (150-400); RED BLOOD CELL COUNT 4.93 M/mm3 (4.10-5.30); WHITE BLOOD CELL COUNT,WBC 9.45 K/mm3 (3.9-11.3)
[2025-04-23] MEDS: Oxytocin/0.9 % Sodium Chloride 30 UNIT/500 ML BAG IV SCH (11:52)
[2025-04-23] MEDS: Benzocaine/Menthol 20%-0.5% Spray 78 GM Cannister TOP PRN (13:21)
[2025-04-23] MEDS: Witch Hazel Medicated Pads 40/Jar TOP PRN (13:22)
[2025-04-23] MEDS ORDERED: Sodium Chloride 0.9% 10 ML Syringe FLUSH SCH (21:00)
== END 2025-04-24 18:46 | disposition home or self-care (01) | DRG 560 ==
LOC: JD.OBCHECK 09:29 → JD.OB 09:34 → JD.OBCHECK 10:17 → OBSVTOIN 11:51 → JD.OB 11:52
PROVIDERS: ADMIT Obstetrics & Gynecology; ATTEND Obstetrics & Gynecology
PROC: 0KQM0ZZ Repair Perineum Muscle, Open Approach (ICD-10-PCS; principal; 2025-04-23)
PROC: 10E0XZZ Delivery of Products of Conception, External Approach (ICD-10-PCS; principal; 2025-04-23)
DX: O99.824 Streptococcus B carrier state complicating childbirth (principal); Z3A.37 37 weeks gestation of pregnancy; Z37.0 Single live birth; O70.1 Second degree perineal laceration during delivery; Z79.899 Other long term (current) drug therapy; Z98.890 Other specified postprocedural states
CPT/HCPCS: 36415; 59025; 59409; 85025; 86592; 86850; 86900; 86901; A9270-GY; J0290; J2003; J7120; J7999